=== PATIENT | female | born 1990 | race Caucasian/White ===

== ENCOUNTER → 2020-09-03 12:04 | Outpatient (BNVA) | payer MEDICAID, SELFPAY | PROVIDERS: Visit Provider Nurse Practitioner Family | DX: Z20.822 Contact with and (suspected) exposure to COVID-19 (principal) | CPT/HCPCS: 87635 ==

== ENCOUNTER 2022-03-22 11:05 | Emergency (ER) | payer MEDICAID, SELFPAY ==
[2022-03-22 11:16] VITALS: BP 105/71; PULSE 67; RESP 16; TEMP 36.7; O2SAT 97
[2022-03-22 11:39] VITALS: PULSE 72; RESP 14; O2SAT 99
--- NOTE | 2022-03-22 11:39 | CTR_ITS ---
PROCEDURE INFORMATION: Exam: CT Head Without Contrast Exam date and time: 03/22/2022 12:34 PM Age: 31 years old Clinical indication: Pain; Headache; Additional info: Headache, dizziness and confusion TECHNIQUE: Imaging protocol: Computed tomography of the head without contrast. Radiation optimization: All CT scans at this facility use at least one of these dose optimization techniques: automated exposure control; mA and/or kV adjustment per patient size (includes targeted exams where dose is matched to clinical indication); or iterative reconstruction. Other protocol: This patient has received 0 known CTs and 0 known cardiac nuclear medicine studies in the 12 months prior to the current study. COMPARISON: No relevant prior studies available. RADIATION DOSE METRICS: Total DLP (mGy-cm): 1005.64 FINDINGS: Brain: Normal. No hemorrhage. No mass effect or midline shift. Cortical sulci and white matter are unremarkable for age. Cerebral ventricles: Unremarkable for age. Paranasal sinuses: Visualized sinuses are unremarkable. No fluid levels. Mastoid air cells: Visualized mastoid air cells are well aerated. Bones/joints: Unremarkable. No acute fracture. Soft tissues: Unremarkable. CT/CT head wo con* [id number] IMPRESSION: Unremarkable CT examination of the head.
--- NOTE | 2022-03-22 11:42 | ED_ITS ---
HPI - Nausea/Vomiting/Diarrhea General: Chief complaint: Nausea/Vomiting/Diarrhea Stated complaint: n/v/headache/weak Time Seen by Provider: 03/22/22 11:21 History of Present Illness: Patient is a 31-year-old female comes to the ED with dizziness and nausea and vomiting. Symptoms have been going on now for approximately 1 week. She has been having a mild headache that she rates a 3 out of 10 currently. She has been having nausea and vomiting and has had multiple episodes of emesis over the past week. Endorses multiple episodes of diarrhea daily as well. She has trouble keeping any food or fluids down. She endorses having some confusion, slurred speech and episodes of blurry vision. She describes the dizziness as room spinning. She went to walk-in clinic back on March 16 and was diagnosed with acute bacterial sinusitis and told to go to emergency department for evaluation of potential stroke. She went to the emergency department at [place], [place] and they did not do a head CT on patient. Her symptoms have not improved over the past 5 days since she discha rged from ED. Associated nausea: Yes Associated symtoms: Reports headache(s) and nausea; Denies change in vision, chest pain, dysuria, fatigue or palpitations Review of Systems Const: Denies: fever(s), chills or fatigue Eyes: Reports: blurry vision; Denies: change in vision or eye discomfort ENMT: Denies: throat pain, odynophagia, nasal discharge or nasal congestion Card: Denies: chest pain, palpitations, edema, swelling of feet/ankles, dyspnea on exertion or orthopnea Resp: Denies: dyspnea, productive cough or non-productive cough GI: Reports: nausea, vomiting and diarrhea; Denies: abdominal pain, constipation or hematochezia : Denies: flank pain, dysuria or hematuria Musc: Denies: neck pain, back pain or extremity swelling Skin/Breast: Denies: rash or new lesions Neuro: Reports: headache(s), confusion and Slurred speech present; Denies: numbness in extremities or weakness in extremities [facility] ED PFSH: Medical History GERD (gastroesophageal reflux disease) Surgical History H/O elbow surgery Family History Denies family history of Diabetes CAD (coronary artery disease) Cancer Hypertension Social History Smoking and tobacco status: current every day smoker cigarettes Packs smoked per day: 0.5 Quit status (tobacco): has tried quititng Alcohol intake: current Alcohol intake frequency: holidays/special occasions only Female Reproductive History: Date of last menstrual period: 03/09/20 Spontaneous abortions: No Physical Exam Const: COMMON NORMALS: patient oriented x3 and alert ORIENTATION/CONSCIOUSNESS: Yes oriented to person, Yes oriented to place and Yes oriented to time HENMT: COMMON NORMALS: normocephalic HEAD & SCALP: normocephalic MOUTH: Normal oral and palatal mucosa present THROAT: posterior oropharynx normal and uvula midline Neck/C-Spine: COMMON NORMALS: supple GENERAL: Yes normal visual inspection Resp: COMMON NORMALS: normal respiratory effort, No retractions, No use of accessory muscles and clear to auscultation bilaterally AUSCULTATION: clear to auscultation bilaterally Cardio: COMMON NORMALS: regular rate, regular rhythm, S1 normal heart sound present, S2 normal heart sound present, No gallops present (Cardio), No clicks present (Cardio), No murmurs present (Cardio) and Peripheral pulses 2+ throughout RATE: regular rate RHYTHM: regular rhythm HEART SOUNDS: S1 normal heart sound present and S2 normal heart sound present PERIPHERAL PULSES: Peripheral pulses 2+ throughout GI: COMMON NORMALS: Normal to inspection, nondistended, normoactive bowel sounds present, Soft to palpation, non-tender and no masses PALPATION: Yes Soft to palpation : COMMON NORMALS: Yes no CVA tenderness BLADDER/KIDNEY EXAM: Yes no CVA tenderness Back/Pelvis: COMMON NORMALS: no CVA tenderness Extremity: COMMON NORMALS: normal to inspection Neuro: COMMON NORMALS: patient oriented x3, CN's II-XII intact bilaterally, moves all extremities, no focal motor deficits, no sensory deficits noted and gait normal SENSORIUM/ORIENTATION: Yes alert, Yes oriented to person, Yes oriented to place and Yes oriented to time SPEECH: speech normal GAIT: Yes Normal gait present Skin: GENERAL SKIN EXAM: dry skin Course Vital Signs: Vital signs: Vital Signs Temperature 98.0 F 03/22/22 11:16 Pulse Rate 61 03/22/22 13:36 Respiratory Rate 14 03/22/22 13:36 Blood Pressure 127/68 03/22/22 13:36 Pulse Oximetry 97 03/22/22 13:36 Oxygen Delivery Me thod 03/22/22 13:36 MDM - Nausea/Vomiting/Diarrhea Medical Decision Making Patient is a 31-year-old female comes to the ED with dizziness and nausea and vomiting. Symptoms have been going on now for approximately 1 week. She has been having a mild headache that she rates a 3 out of 10 currently. She has been having nausea and vomiting and has had multiple episodes of emesis over the past week. Endorses multiple episodes of diarrhea daily as well. She has trouble keeping any food or fluids down. She endorses having some confusion, slurred speech and episodes of blurry vision. She describes the dizziness as room spinning. She went to walk-in clinic back on March 16 and was diagnosed with acute bacterial sinusitis and told to go to emergency department for evaluation of potential stroke. She went to the emergency department at [place], [place] and they did not do a head CT on patient. Her symptoms have not improved over the past 5 days since she discharged from ED. vitals are stable. Patient appears nontoxic in no acute distress or pain. Neuro exam shows no deficits. Labs are unremarkable. Head CT showed no acute findings. Patient was given liter of IV fluids and nausea meds here in the ED and symptoms improved. She was diagnosed with nausea and vomiting and diarrhea and dizziness. She was discharged home with a prescription for meclizine and Zofran. Told to follow-up with her PCP in the next week for reevaluation. Return to ED precautions given. Patient understood agree with plan. Lab Data I reviewed the patient's lab results. 03/22/22 12:05 03/22/22 12:[address] 03/22/22 11:39 IMPRESSION: Unremarkable CT examination of the head. Laboratory Results WBC 8.9 10^3/uL (4.0-10.0) 03/22/22 12:05 RBC 5.16 10^6/uL (4.1-5.3) 03/22/22 12:05 Hgb 14.5 g/dL (11.5-15.3) 03/22/22 12:05 Hct 44.8 % (37.0-47.0) 03/22/22 12:05 MCV 86.8 fl (81-99) 03/22/22 12:05 MCH 28.1 pg (28.0-34.0) 03/22/22 12:05 MCHC 32.4 g/dL (30.0-36.0) 03/22/22 12:05 RDW 14.5 % (12.1-15.1) 03/22/22 12:05 Plt Count 337 10^3/cmm (130-400) 03/22/22 12:05 MPV 10.0 fL (7.4-10.4) 03/22/22 12:05 Neut % (Auto) 60.8 % 03/22/22 12:05 Lymph % (Auto) 32.6 % 03/22/22 12:05 [place] % (Auto) 5.5 % 03/22/22 12:05 Eos % (Auto) 0.6 % 03/22/22 12:05 Baso % (Auto) 0.3 % 03/22/22 12:05 Neut # (Auto) 5.43 10^3/uL (1.8-7.7) 03/22/22 12:05 Lymph # (Auto) 2.9 10^3/uL (0.8-4.8) 03/22/22 12:05 [place] # (Auto) 0.5 10^3/uL (0.2-0.9) 03/22/22 12:05 Eos # (Auto) 0.1 10^3/uL (0.0-0.8) 03/22/22 12:05 Baso # (Auto) 0.0 10^3/uL (0.0-0.1) 03/22/22 12:05 Nucleated RBC % (auto) 0 % 03/22/22 12:05 Nucleated RBCs # 0.0 /100WBC 03/22/22 12:05 Sodium 138 mmol/L (136-145) 03/22/22 12:05 Potassium 4.3 mmol/L (3.5-5.1) 03/22/22 12:05 Chloride 99 mmol/L (98-107) 03/22/22 12:05 Carbon Dioxide 26 mmol/L (22-29) 03/22/22 12:05 Anion Gap 17.3 (5-19) 03/22/22 12:05 BUN 7 mg/dL (6-20) 03/22/22 12:05 Creatinine 0.6 mg/dL (0.5-0.9) 03/22/22 12:05 GFR Calculation 118.2 mL/min (90-130) 03/22/22 12:05 Glucose 103 mg/dL (65-115) 03/22/22 12:05 Calculated Osmolality 284 mOsm/kg (285-295) L 03/22/22 12:05 Calcium 10.1 mg/dL (8.5-10.5) 03/22/22 12:05 Total Bilirubin 0.3 mg/dL (0.15-1.2) 03/22/22 12:05 AST 18 U/L (0-32) 03/22/22 12:05 ALT 13 U/L (0-33) 03/22/22 12:05 Alkaline Phosphatase 84 U/L (35-105) 03/22/22 12:05 Total Protein 7.8 g/dL (6.6-8.7) 03/22/22 12:05 Albumin 4.6 g/dL (3.5-5.2) 03/22/22 12:05 Globulin 3.2 g/dL (1.3-4.6) 03/22/22 12:05 Lipase 19 U/L (13-60) 03/22/22 12:05 HCG, Qual Negative (Negative) 03/22/22 12:05 Urine Color Yellow (Yellow) 03/22/22 11:36 Urine Appearance Clear (CLEAR) 03/22/22 11:36 Urine pH 8 (5-7) H 03/22/22 11:36 Ur Specific [place] 1.010 (1.005-1.030) 03/22/22 11:36 Urine Protein Neg (Negative) 03/22/22 11:36 Urine Glucose (UA) Norm (Normal) 03/22/22 11:36 Urine Ketones Negative (Negative) 03/22/22 11:36 Urine Blood Neg (Negative) 03/22/22 11:36 Urine Nitrate Negative (Negative) 03/22/22 11:36 Urine Bilirubin Neg (Negative) 03/22/22 11:36 Prot Sulfosalicylic Acd Negative (Negative) 03/22/22 11:36 Urine Urobilinogen Norm mg/dL (Negative) 03/22/22 11:36 Ur Leukocyte Esterase Negative (Negative) 03/22/22 11:36 Discharge Plan Discharge Patient Disposition: Home Clinical Impression: Nausea vomiting and diarrhea, Dizziness Condition: Stable Prescriptions: New ondansetron 4 mg tablet,disintegrating 4 mg PO Q8H PRN (Reason: nausea and vomiting) Qty: 20 0RF meclizine 25 mg tablet 25 mg PO DAILY PRN (Reason: dizziness) Qty: 20 0RF No Action ibuprofen 800 mg tablet 800 mg PO TID acetaminophen [Tylenol] 325 mg tablet 325 mg PO QID PRN diphenhydramine HCl [Allergy] 25 mg tablet 25 mg PO TID PRN amoxicillin-pot clavulanate 875-125 mg tablet 1 tab PO BID Qty: 20 0RF Discharge Orders: Discharge ED (Routine); Ordered 03/22/22 Ordered By: Chong Gresham Referrals: Nicole Workman MD [Primary Care Provider] - Discharge Diet: Regular Discharge Activity: Increase activity as tolerated Activity Restrictions/Additional Instructions: Follow-up with medical provider as directed in the next 5 to 7 days for reevaluation. Take medications as prescribed. Make sure you drink plenty of fluids and stay hydrated. Return to the ER or your medical provider if condition worsens. Please read and understand discharge instructions. Thank you for choosing [facility] for your healthcare needs today. Please realize this is an emergency room and that we are providing you with a medical screening exam and this may not be complete and all inclusive of all the testing and or work up that you may need to determine your ailment or severity of your illness. It is very important that you follow up as instructed or that you return to the Emergency Department should you have concerns or if your condition changes or worsens in any way. Coding Level of Care Code ED Automatic Packer Operator for Nolvia Fwjose francisco Exam Comprehensive
[2022-03-22 12:01] LABS: Add Urine Microscopic? NO; Charge for UA Resulting for Rev
[2022-03-22] MEDS: sodium chloride 0.9% 1,000 ML 999 ML IV (12:13)
[2022-03-22] MEDS: ondansetron 2 mg/ML SDV 2 mL 4 MG IVP (12:13)
[2022-03-22 12:22] LABS: Basophils % 0.3 %; Eosinophils # 0.1 10^3/uL (0.0-0.8); Eosinophils % 0.6 %; Hematocrit 44.8 % (37.0-47.0); Hemoglobin 14.5 g/dL (11.5-15.3); Lymphocytes # 2.9 10^3/uL (0.8-4.8); Lymphocytes % 32.6 %; Mean Corpuscular HGB Conc 32.4 g/dL (30.0-36.0); Mean Corpuscular Hemoglobin 28.1 pg (28.0-34.0); Mean Corpuscular Volume 86.8 fl (81-99); Monocytes # 0.5 10^3/uL (0.2-0.9); Monocytes % 5.5 %; Neutrophils # 5.43 10^3/uL (1.8-7.7); Neutrophils % 60.8 %; Nucleated Red Blood Cells % 0 %; Platelet Count 337 10^3/cmm (130-400); Red Blood Count 5.16 10^6/uL (4.1-5.3); Red Cell Distribution Width 14.5 % (12.1-15.1); White Blood Count 8.9 10^3/uL (4.0-10.0)
[2022-03-22 12:29] VITALS: BP 127/68; PULSE 66; RESP 14; O2SAT 96
[2022-03-22 12:39] LABS: HCG, Serum Qual Negative (Negative)
[2022-03-22 12:47] LABS: Alanine Aminotransferase 13 U/L (0-33); Albumin Level 4.6 g/dL (3.5-5.2); Alkaline Phosphatase 84 U/L (35-105); Anion Gap 17.3 (5-19); Aspartate Amino Transferase 18 U/L (0-32); Blood Urea Nitrogen 7 mg/dL (6-20); Calcium 10.1 mg/dL (8.5-10.5); Carbon Dioxide 26 mmol/L (22-29); Chloride 99 mmol/L (98-107); Globulin 3.2 g/dL (1.3-4.6); Glomerular Filtration Rate 118.2 mL/min (90-130); Glucose 103 mg/dL (65-115); Lipase 19 U/L (13-60); Osmolality Calculated 284 mOsm/kg (285-295); Potassium 4.3 mmol/L (3.5-5.1); Sodium 138 mmol/L (136-145); Total Bilirubin 0.3 mg/dL (0.15-1.2); Total Protein 7.8 g/dL (6.6-8.7)
[2022-03-22 13:10] LABS: Bilirubin Urine Neg (Negative); Blood Urine Neg (Negative); Glucose Urine UA Norm (Normal); Ketones Urine Negative (Negative); Leukocyte Esterase Urine Negative (Negative); Nitrate Urine Negative (Negative); Protein Urine Neg (Negative); Sulfosalicylic Acid Urine Negative (Negative); Urine Appearance Clear (CLEAR); Urine Color Yellow (Yellow); Urobilinogen Urine Norm (Negative); pH Urine 8 (5-7)
[2022-03-22 13:12] VITALS: BP 127/68; PULSE 59; RESP 14; O2SAT 97
[2022-03-22 13:36] VITALS: BP 127/68; PULSE 61; RESP 14; O2SAT 97
== END 2022-03-22 13:55 | disposition home or self-care (01) ==
PROVIDERS: Emergency Provider Physician Assistant; PCP Family Medicine
DX: R42 Dizziness and giddiness (principal); R11.2 Nausea with vomiting, unspecified; R19.7 Diarrhea, unspecified; F17.210 Nicotine dependence, cigarettes, uncomplicated
CPT/HCPCS: 70450; 80053; 81003; 83690; 84703; 85025; 96361; 96374; 99285; J2405; J7030